=== PATIENT | male | born 1965 | race Caucasian/White ===

== ENCOUNTER 2021-05-04 10:37 | Inpatient (IN) | payer OTHER ==
[~2021-05-04] VITALS: Ht 180.3 cm; Wt 101.5 kg
[2021-05-04] MEDS ORDERED: IBUP400 PO (11:07)
[2021-05-04] MEDS ORDERED: ZESTORETIC 20-251 EA PO (11:07)
[2021-05-04 11:44] LABS: BASOPHILS ABSOLUTE AUTO 0.06 K/mm3 (0.00-0.23); BASOPHILS PERCENT AUTO 1 % (0-2); EOSINOPHILS ABSOLUTE AUTO 0.19 K/mm3 (0.00-0.68); EOSINOPHILS PERCENT AUTO 2 % (0-6); Hematocrit 37.6 % (37.0-53.0); IMMATURE GRAN ABSOLUTE AUTO 0.08 K/mm3 (0.00-0.10); IMMATURE GRAN PERCENT AUTO 1 % (0-1); LYMPHOCYTES ABSOLUTE AUTO 1.68 K/mm3 (0.84-5.20); LYMPHOCYTES PERCENT AUTO 13 % (21-46); MONOCYTES ABSOLUTE AUTO 1.73 K/mm3 (0.16-1.47); MONOCYTES PERCENT AUTO 14 % (4-13); Mean Corpuscular HGB 32.7 pg (26.0-34.0); Mean Corpuscular HGB Conc 34.6 g/dL (31.5-36.5); Mean Corpuscular Volume 95 fL (80-100); NEUTROPHILS ABSOLUTE AUTO 8.99 K/mm3 (1.96-9.15); NEUTROPHILS PERCENT AUTO 71 % (41-73); Platelet Count 297 K/mm3 (150-400); RDW Coefficient Variation 12.5 % (11.7-14.2); RDW Standard Deviation 43.5 fL (35.1-46.3); Red Blood Cell Count 3.98 M/mm3 (4.30-5.90); White Blood Cell Count 12.73 K/mm3 (4.00-11.30)
[2021-05-04 12:02] LABS: Anion Gap 6 mmol/L (6-16); Blood Urea Nitrogen 14 mg/dL (8-24); Bun/Creatinine Ratio 13.3 (12.0-20.0); CO2, Blood 27 mmol/L (21-32); Chloride, Blood 104 mmol/L (98-108); Creatinine, Blood 1.05 mg/dL (0.60-1.20); Glomerular Filtration Rate >60 (60-); Glucose, Blood 129 mg/dL (70-99); Potassium, Blood 3.5 mmol/L (3.5-5.5); Sodium, Blood 137 mmol/L (136-145); Uric Acid, Blood 6.5 mg/dL (3.5-7.2)
[2021-05-04 12:50] LABS: Albumin, Blood 3.4 g/dL (3.4-5.0); Albumin/Globulin Ratio 0.7 (0.8-1.8); Bilirubin, Direct 0.2 mg/dL (0.0-0.3); Bilirubin, Indirect 0.9 mg/dL (0.1-0.7); Bilirubin, Total 1.1 mg/dL (0.1-1.0); Globulin, Blood 4.6 g/dL (2.2-4.0)
[2021-05-04 13:08] LABS: Appearance, Synovial Fluid Hazy (Clear); Color, Synovial Fluid Dark Yellow (None-P Yel); Crystals, Synovial Fluid Not Seen (Not Seen)
[2021-05-04 13:31] LABS: BODY FLUID RBC 0.011 M/mm3 (0-0); RBC Count, Synovial Fluid 11000 /mm3 (0-0)
[2021-05-04 14:45] LABS: Lymphs, Synovial Fluid 1 % (0-15); Monocytes/Macrophages, Synovia 3 % (0-65); Neutrophils, Synovial Fluid 96 % (0-24)
[2021-05-04 15:49] LABS: Body Fluid Crystals NEG (NEGATIVE)
[2021-05-04 16:20] LABS: WBC Count, Synovial Fluid 28140 /mm3 (0-180)
[2021-05-04 16:26] LABS: SARS-Cov-2 (COVID-19) PCR, MMC NEGATIVE (NEGATIVE)
[2021-05-04 16:54] LABS: RBC Count, Synovial Fluid 13 /mm3 (0-0)
[2021-05-04 17:16] LABS: Monocytes/Macrophages, Synovia 14 % (0-65); Neutrophils, Synovial Fluid 86 % (0-24)
[2021-05-04 17:18] LABS: Appearance, Synovial Fluid Cloudy (Clear); Color, Synovial Fluid Yellow (None-P Yel)
--- NOTE | 2021-05-04 18:19 | NUR ---
ADMIT/SHIFT SUMMARY PT ARRIVED TO UNIT @ APPROX 1705 FROM ED VIA GURNEY, PT WAS ABLE TO SLIDE TRANSFER HIMSELF FROM THE GURNEY. PT A&OX4. ON RA, LS CLEAR, DENIES ANY SOB. DENIES ANY CARDIAC SYMPTOMS. REPORTS PAIN OF THE KALI KNEES AND FEET THAT HAS BEEN ONGOING FOR THE LAST 3 MONTHS. KALI ARTHROCENTESIS SITES OF THE KNEES, C/D/I AND APPEAR WNL. TELE IN PLACE, RUNNING NSR @ 88. NS RUNNING @ 125 ML/HR. DENIES REFUSED TO WEAR SCD'S DUE TO PAIN OF THE BLE. PT IS CURRENTLY RESTING IN BED WITH CALL LIGHT WITHIN REACH, CALLS APPROPRIATELY.
[2021-05-04 21:32] LABS: Source, Urine Clean Catch
[2021-05-04 21:33] LABS: Bilirubin, Urine Neg (Neg); Blood, Urine Neg (Neg); Glucose Qualitative, Urine Neg (Neg); Ketones, Urine Neg (Neg); Leukocyte Esterase, Urine Neg (Neg); Nitrite, Urine Neg (Neg); Protein, Urine 1+ (Neg); Urobilinogen, Urine NORM (Normal)
[2021-05-04 21:35] LABS: Appearance, Urine Clear (Clear); Color, Urine Yellow (P-Yellow)
[2021-05-05 05:14] LABS: Hematocrit 35.3 % (37.0-53.0); Hemoglobin 11.9 g/dL (13.5-17.5); Mean Corpuscular HGB 32.4 pg (26.0-34.0); Mean Corpuscular HGB Conc 33.7 g/dL (31.5-36.5); Mean Corpuscular Volume 96 fL (80-100); Mean Platelet Volume 10.1 fL (9.1-12.4); Platelet Count 276 K/mm3 (150-400); RDW Coefficient Variation 12.7 % (11.7-14.2); RDW Standard Deviation 44.7 fL (35.1-46.3); Red Blood Cell Count 3.67 M/mm3 (4.30-5.90)
--- NOTE | 2021-05-05 05:15 | NUR ---
SHIFT SUMMARY A/O, ABLE TO MAKE NEEDS KNOWN. COOPERATIVE WITH CARE. CALLS AND ANSWERS QUESTIONS APPROPRIATELY. C/O PAIN/DISCOMFORT TO BILATERAL KNEES, RATED 7-10/10 DEPENDENT ON ACTIVITY. NEW ORDERS PLACED BY ON-CALL PHYSICIAN. MEDICATED PER EMAR. CONTINUES WITH IV HYDRATION; INFUSING WITHOUT COMPLICATIONS. NPO AFTER MIDNIGHT IN ANTICIPATION OF POTENTIAL SX PROCEDURE. APPEARED TO REST MUCH OF THE NIGHT. VSS/AFEBRILE. NO OTHER ACUTE CHANGES NOTED. BED REMAINS IN LOWEST POSITION. CALL LIGHT AND BELONGINGS WITHIN REACH. CONTINUE WITH CURRENT PLAN OF CARE. REPORT TO ONCOMING RN.
[2021-05-05 05:50] LABS: Anion Gap 5 mmol/L (6-16); Blood Urea Nitrogen 15 mg/dL (8-24); Bun/Creatinine Ratio 14.7 (12.0-20.0); CO2, Blood 27 mmol/L (21-32); Calcium, Blood 8.2 mg/dL (8.5-10.1); Chloride, Blood 105 mmol/L (98-108); Creatinine, Blood 1.02 mg/dL (0.60-1.20); Glomerular Filtration Rate >60 (60-); Glucose, Blood 106 mg/dL (70-99); Potassium, Blood 3.5 mmol/L (3.5-5.5); Sodium, Blood 137 mmol/L (136-145)
--- NOTE | 2021-05-05 12:07 | NUR ---
Patient is lying in bed and alert. Patient tells me about the events that led to his hospitalization and the pain that he is in at this time even with "lots of pain meds" being throw at it. 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 He also shares about his belief in God but he states that he is not into mosque at this time in his life. I provide therapeutic listening and prayer. Patient responds well and shows signs of being distracted from his pain and having an elevated mood. I will continue to remain available to patient and family.
[2021-05-05 15:28] LABS: Vancomycin, Trough 21.9 ug/mL (5.0-10.0)
--- NOTE | 2021-05-05 17:29 | NUR ---
SHIFT SUMMARY A&Ox4, COOPERATIVE c CARE, CONTINUES TO REPORT SEVERE PAIN IN THE BLE AND NOW IN THE HANDS WELL. CALLS ATTEMPTED TO WILLIAMS. CONRAD UPDATED, STEROIDS ORDERED AND PAIN MEDS PROVIDED PER EMAR. CULTURES SHOWED NO GROWTH FOR TODAY AND NO SURGERY OCCURING OF NOW, PT ABLE TO EAT/DRINK AND WILL BE NPO AFTER MIDNIGHT. FLUIDS DISCONTINUED. REMAINS ON BEDREST DUE TO INCREASED PAIN c MOVEMENT AND AMBULATION. CURRENTLY RESTING IN BED c CALL LIGHT WITHIN REACH. CALLS APPROPRIATELY TO MAKE NEEDS KNOWN.
--- NOTE | 2021-05-06 04:54 | NUR ---
SHIFT SUMMARY- PT. A&O, PLEASANT AND COOPERATIVE WITH CARE. HAD NO ACUTE EVENTS OVERNIGHT. MEDICATED FOR BLE PAIN DURING THE NIGHT WITH GOOD EFFECT. PT. SLEPT T/O THE NIGHT, NO APPARENT DISTRESS NOTED. VSS. CALL LIGHT WITHIN REACH AND SIDE RAILS UPX2. WILL CONT TO MONITOR.
[2021-05-06] MEDS ORDERED: PANT20 PO (12:42)
[2021-05-06] MEDS ORDERED: Prednisone10 MG PO (12:44)
[2021-05-06] MEDS ORDERED: IBU600 M1 PO (12:45)
--- NOTE | 2021-05-06 15:30 | NUR ---
PT DISCHARGE TO HOME; PACKETS DISCHARGE GIVEN TO PT AND FAXED MEDS TO [facility]. PT ALSO HAVE HARD SCRIPT FOR FWW AND LISINOPRIL FROM THE DR. PT DID WORKED WITH PT BEFORE GOING HOME. PT TRANSPORTED VIA WC. MEDICATED TORADOL BEFORE GOING HOME. EDUCATED ABOUT MEDICATION AND PREDNISONE. INSTRUCTD TO FU TO DR WITHIN A WEEK AND FU TO GRAINING OPERATOR PER PCP. NO OTHER CONCERNS NOTED.
[2021-05-08 13:08] LABS: ANA DIRECT Negative (Negative); ANTI-DNA (DS) AB QN <1 IU/mL (0-9); RNP ANTIBODIES <0.2 AI (0.0-0.9); SJOGREN'S ANTI-SS-A <0.2 AI (0.0-0.9); SJOGREN'S ANTI-SS-B <0.2 AI (0.0-0.9); SMITH ANTIBODIES <0.2 AI (0.0-0.9)
== END 2021-05-06 15:30 | disposition home or self-care (01) | DRG 872 ==
LOC: ER 10:37 → MEDS 16:15
PROVIDERS: Emergency Medicine; Orthopaedic Surgery; ADMIT Internal Medicine
PROC: 0S9C3ZZ Drainage of Right Knee Joint, Percutaneous Approach (ICD-10-PCS; principal; 2021-05-04)
DX: A41.9 Sepsis, unspecified organism (principal); M00.9 Pyogenic arthritis, unspecified; I10 Essential (primary) hypertension; Z88.8 Allergy status to other drugs, medicaments and biological substances; Z79.899 Other long term (current) drug therapy; Z20.822 Contact with and (suspected) exposure to COVID-19; M10.9 Gout, unspecified; M06.9 Rheumatoid arthritis, unspecified; M32.9 Systemic lupus erythematosus, unspecified
CPT/HCPCS: 20610; 36415; 73560-LT; 73560-RT; 80048; 80076; 80202; 83605; 84550; 85025; 85027; 85651; 86140; 86225; 86235; 86430; 87040; 87070; 87075; 87205; 89051; 89060; 96365-59; 96367-59; 96375-59; 97110; 97162; 97530; 99285-25; A9270; C9113; J0690; J1170; J1650; J1885; J2930; J3370; J7030; J7050; J7512; U0004

== ENCOUNTER → 2022-01-17 | Outpatient (CLI) | payer OTHER ==
[~2022-01-17] MED LIST: IBU600 M1 PO; IBUP400 PO; PANT20 PO; Prednisone10 MG PO; ZESTORETIC 20-251 EA PO
== END | disposition home or self-care (01) ==
LOC: LAB SHORT 15:05
DX: L30.9 Dermatitis, unspecified (principal)
CPT/HCPCS: 88305; 88312